=== PATIENT | male | born 1945 | race Caucasian/White ===

== ENCOUNTER 2020-12-13 14:01 | Emergency (ER) | payer MEDICARE ==
[~2020-12-13 14:01] MED LIST: ACETAMINOPHEN500 M1 PO; APPLE CIDER VI300 MG PO; ASPIRIN EC81 MG PO; ASPIRIN325 MG PO; BUSPAR 10MG10 MG PO; CLARITIN 10MG T10 MG PO; CLOPIDOGREL75 MG PO; COZAAR 50MG TAB50 MG PO; COZAAR25 MG PO; COZAAR50 MG PO; DIFLUCAN200 MG PO; EFFEXOR XR150 MG PO; GARLIC1000 MG PO; INDERAL TAB 1010 MG PO; LEVOTHYROXINE100 MCG PO; LEVOTHYROXINE150 MCG PO; LIPITOR40 MG PO; MELATONIN3 MG PO; MEN'S ONE DAIL1 EACH PO; METOPROLOL TART25 MG PO; MIRALAX17 GM PO; MOBIC7.5 MG PO; NIGHTTIME SLEEP25 MG PO; NYSTATIN1 EAC2 MC; PERCOCET 10-321 EACH PO; PRESERVISION A1 EACH PO; RISPERDAL1 MG PO; SINEQUAN CAP 2525 MG PO; SYNTHROID175 MCG PO; VALIUM 5 MG TAB5 MG PO; VIBRAMYCIN100 MG PO; ZANAFLEX4 MG PO; ZINC OXIDE28 GM TP
[2020-12-13 15:38] LABS: HEMOGLOBIN 12.8 gm/dl (14.0-17.5); RED BLOOD COUNT 4.08 M/UL (4.20-5.50)
[2020-12-13 16:02] LABS: BUN/CREATININE RATIO 27 (0-10)
== END 2020-12-13 18:53 | disposition home or self-care (01) ==
LOC: ER1 14:01
PROVIDERS: Preventive Medicine Occupational Medicine
DX: U07.1 COVID-19 (principal); G62.9 Polyneuropathy, unspecified; I25.10 Atherosclerotic heart disease of native coronary artery without angina pectoris; Z86.73 Personal history of transient ischemic attack (TIA), and cerebral infarction without residual deficits; Z88.1 Allergy status to other antibiotic agents; Z95.5 Presence of coronary angioplasty implant and graft
CPT/HCPCS: 0240U; 36415; 70450; 70551; 71045; 80053; 81001; 83605; 83690; 83880; 85025; 85652; 86140; 87077; 87086; 87186; 93005; 99285; J7030

== ENCOUNTER 2020-12-30 14:04 | Emergency (ER) | payer MEDICARE ==
[2020-12-30 18:00] LABS: HEMOGLOBIN 12.2 gm/dl (14.0-17.5); RED BLOOD COUNT 3.93 M/UL (4.20-5.50); WHITE BLOOD COUNT 7.9 K/UL (4.5-11.0)
[2020-12-30 18:25] LABS: BUN/CREATININE RATIO 28 (0-10)
== END 2020-12-30 20:52 | disposition home or self-care (01) ==
LOC: ER1 14:04
PROVIDERS: Family Medicine
DX: R00.1 Bradycardia, unspecified (principal); I69.352 Hemiplegia and hemiparesis following cerebral infarction affecting left dominant side; I10 Essential (primary) hypertension; Z91.81 History of falling; Z86.69 Personal history of other diseases of the nervous system and sense organs; Z88.1 Allergy status to other antibiotic agents; Z79.899 Other long term (current) drug therapy
CPT/HCPCS: 36415; 70450; 80053; 81001; 82550; 82553; 83735; 83874; 84439; 84443; 84484; 85025; 93005; 99284

== ENCOUNTER → 2021-09-22 | Outpatient (CLI) | payer MEDICARE | LOC: EXRD 08:30 | DX: N18.30 Chronic kidney disease, stage 3 unspecified (principal) | CPT/HCPCS: 76775 ==

== ENCOUNTER 2021-11-22 14:13 | Inpatient (IN) | payer MEDICARE ==
[~2021-11-22] VITALS: Ht 188 cm; Wt 121.1 kg
[2021-11-22 14:51] LABS: HEMOGLOBIN 12.5 gm/dl (14.0-17.5); RED BLOOD COUNT 3.98 M/UL (4.20-5.50); WHITE BLOOD COUNT 6.7 K/UL (4.5-11.0)
[2021-11-22 15:21] LABS: BUN/CREATININE RATIO 20 (0-10)
[2021-11-23 11:24] LABS: HEMOGLOBIN 13.2 gm/dl (14.0-17.5); RED BLOOD COUNT 4.16 M/UL (4.20-5.50)
[2021-11-23] MEDS ORDERED: ASPIRIN325 MG PO (11:33)
[2021-11-23] MEDS ORDERED: AMLODIPINE BES2.5 MG PO (11:33)
[2021-11-23] MEDS ORDERED: RISPERIDONE1 MG PO (11:35)
[2021-11-23] MEDS ORDERED: OXYCODONE-ACET1 EACH PO (11:35)
[2021-11-23] MEDS ORDERED: CYMBALTA 30 MG30 MG PO (11:36)
[2021-11-23] MEDS ORDERED: DIAZEPAM5 MG PO (11:36)
[2021-11-23 11:51] LABS: BUN/CREATININE RATIO 19 (0-10)
[2021-11-24 06:57] LABS: HEMOGLOBIN 12.3 gm/dl (14.0-17.5); RED BLOOD COUNT 3.86 M/UL (4.20-5.50)
[2021-11-24 07:01] LABS: WHITE BLOOD COUNT 9.5 K/UL (4.5-11.0)
[2021-11-24 07:32] LABS: BUN/CREATININE RATIO 23 (0-10)
[2021-11-25 06:57] LABS: HEMOGLOBIN 12.2 gm/dl (14.0-17.5); RED BLOOD COUNT 3.92 M/UL (4.20-5.50); WHITE BLOOD COUNT 9.1 K/UL (4.5-11.0)
[2021-11-25 08:12] LABS: BUN/CREATININE RATIO 32 (0-10)
[2021-11-26 05:00] LABS: HEMOGLOBIN 12.4 gm/dl (14.0-17.5); RED BLOOD COUNT 4.01 M/UL (4.20-5.50); WHITE BLOOD COUNT 8.8 K/UL (4.5-11.0)
[2021-11-26 05:43] LABS: BUN/CREATININE RATIO 33 (0-10)
[2021-11-26] MEDS ORDERED: BUDESONIDE0.5 MG/2 M NEB (13:46)
[2021-11-26] MEDS ORDERED: IPRAT-ALBUT 0.5-3 ML NEB (13:46)
[2021-11-26] MEDS ORDERED: ASPIRIN EC81 MG PO (13:46)
[2021-11-26] MEDS ORDERED: DEXAMETHASONE6 MG PO (13:58)
[2021-11-26] MEDS ORDERED: DIAZEPAM5 MG PO (13:58)
--- NOTE | 2021-11-26 14:23 | NUR ---
Patients 1 on 3L of oxygen is 95-97 percent. On room air the patient sats at 88-89 percent.
[2021-11-26] MEDS ORDERED: AMLODIPINE BES2.5 MG PO (16:59)
--- NOTE | 2021-11-26 17:57 | NUR ---
patient had a blood pressure of 181/113, blood pressure was called to Dr. Chung. he gave the order to give norvasc and recheck the patients bp. when bp rechecked it was 153/76, patient discharged home.
== END 2021-11-26 18:55 | disposition home health service (06) | DRG 177 ==
LOC: ER1 14:13 → CDU 11-23 00:50 → MED SURG 4 11-23 00:50
PROVIDERS: Emergency Medicine; Internal Medicine; ADMIT Family Medicine
PROC: 3E0333Z Introduction of Anti-inflammatory into Peripheral Vein, Percutaneous Approach (ICD-10-PCS; 2021-11-23)
PROC: XW033E5 Introduction of Remdesivir Anti-infective into Peripheral Vein, Percutaneous Approach, New Technology Group 5 (ICD-10-PCS; 2021-11-23)
PROC: 5A09357 Assistance with Respiratory Ventilation, Less than 24 Consecutive Hours, Continuous Positive Airway Pressure (ICD-10-PCS; 2021-11-23)
PROC: 8E0ZXY6 Isolation (ICD-10-PCS; principal; 2021-11-24)
PROC: B24BZZ4 Ultrasonography of Heart with Aorta, Transesophageal (ICD-10-PCS; 2021-11-24)
DX: U07.1 COVID-19 (principal); J96.01 Acute respiratory failure with hypoxia; J12.82 Pneumonia due to coronavirus disease 2019; I69.351 Hemiplegia and hemiparesis following cerebral infarction affecting right dominant side; J98.11 Atelectasis; E66.2 Morbid (severe) obesity with alveolar hypoventilation; N17.9 Acute kidney failure, unspecified; J44.0 Chronic obstructive pulmonary disease with (acute) lower respiratory infection; E78.5 Hyperlipidemia, unspecified; E03.9 Hypothyroidism, unspecified; I10 Essential (primary) hypertension; G47.33 Obstructive sleep apnea (adult) (pediatric); I25.10 Atherosclerotic heart disease of native coronary artery without angina pectoris; I48.91 Unspecified atrial fibrillation; F41.9 Anxiety disorder, unspecified; F32.A Depression, unspecified; I69.320 Aphasia following cerebral infarction; I69.322 Dysarthria following cerebral infarction; Z79.01 Long term (current) use of anticoagulants; Z79.82 Long term (current) use of aspirin; Z88.1 Allergy status to other antibiotic agents; Z99.81 Dependence on supplemental oxygen; Z95.5 Presence of coronary angioplasty implant and graft; Z85.46 Personal history of malignant neoplasm of prostate; Z68.34 Body mass index [BMI] 34.0-34.9, adult
CPT/HCPCS: ECHO; 0241U; 36415; 70496; 70498; 70551; 71045; 80048; 80053; 80061; 81001; 82550; 82553; 82728; 82962; 83735; 83874; 83880; 84439; 84443; 84484; 85025; 85027; 85379; 85610; 85730; 86140; 93005; 93306; 94640; 94660; 94760; 96374; 96376; 97162; 99285; J0248; J1100; J1650; J7030; Q9967